=== PATIENT | female | born 1950 | race Caucasian/White ===

== ENCOUNTER → 2022-03-04 | Outpatient (CLI) | payer MEDICARE ==
[~2022-03-04] MED LIST: DULO60CA64 PO; LUBI24CA2 PO; MAGN100T5 PO; MIRT-22 PO; MIRT-92 PO; PROG100C11 PO; ROSU10TA22 PO
== END ==
LOC: SHCH 14:12
PROVIDERS: ATTEND Student in an Organized Health Care Education/Training Program
DX: I08.8 Other rheumatic multiple valve diseases (principal); E66.9 Obesity, unspecified
CPT/HCPCS: 93306

== ENCOUNTER → 2022-10-26 | Outpatient (CLI) | payer MEDICARE ==
[~2022-10-26] MED LIST changes: +IOHEXOL-350 50ML VIAL IV ONE; +METOPROLOL TARTRATE 1 MG/ML 5ML VIAL IV ONE
== END | disposition home or self-care (01) ==
LOC: RAH 07:43
PROVIDERS: ATTEND Student in an Organized Health Care Education/Training Program
DX: M47.815 Spondylosis without myelopathy or radiculopathy, thoracolumbar region (principal); R07.9 Chest pain, unspecified
CPT/HCPCS: 75574; J3490; Q9967